=== PATIENT | male | born 1945 | race Caucasian/White ===

== ENCOUNTER → 2017-07-23 | Outpatient (CLI) | payer MEDICARE ==
--- NOTE | 2017-07-24 17:21 | RAD ---
EXAM DESCRIPTION: Chest,2 Views CLINICAL HISTORY: ACUTE BRONCHITIS COMPARISON: None TECHNIQUE: PA/lateral FINDINGS: The lungs are well expanded and clear. No infiltrates or effusions or masses are noted. The heart is normal in size and shape with no evidence of vascular congestion. The aortic arch and descending aorta is calcified and moderately tortuous The pau and mediastinum demonstrate normal contours. The bony spine and chest wall is normal for age in appearance. IMPRESSION: Normal chest, two views Electronically signed by: Ty De La Vega MD 07/24/2017 5:20 PM DIRECTOR GEOPHYSICAL LABORATORY
== END | disposition home or self-care (01) ==
LOC: LAB.O 09:37
PROVIDERS: ATTEND Nurse Practitioner Family
DX: E78.5 Hyperlipidemia, unspecified (principal); N40.0 Benign prostatic hyperplasia without lower urinary tract symptoms; J20.9 Acute bronchitis, unspecified; I10 Essential (primary) hypertension

== ENCOUNTER → 2018-11-26 | Outpatient (CLI) | payer MEDICARE, OTHER ==
--- NOTE | 2018-11-27 11:27 | MRI ---
EXAM DESCRIPTION: Lumbar Spine w/o Contrast CLINICAL HISTORY: 73 years Male, low back pain COMPARISON: None available. TECHNIQUE: Multiplanar multiecho imaging of the lumbar spine was performed without intravenous contrast administration. FINDINGS: Straightening of the normal lordotic curvature of the lumbar spine is noted. The vertebral body heights are well-maintained with no acute compression deformity. Multilevel intervertebral disc space narrowing is noted. The conus medullaris terminates at T12-L1 intervertebral disc space. The visualized spinal cord demonstrates no signal abnormality. L1-L2: Bilateral facet arthropathy. No central canal stenosis. There is mild left neural foraminal narrowing. L2-L3: Mild disc bulge and facet arthropathy with no central canal stenosis. There is moderate bilateral neural foraminal narrowing. L3-L4: Mild disc bulge and facet arthropathy with no central canal stenosis. There is moderate bilateral neural foraminal narrowing, worse on the right side. L4-L5: Diffuse disc bulge, ligament of flavum hypertrophy and facet arthropathy with resultant mild central canal stenosis, moderate to severe right and moderate left neural foraminal narrowing. L5-S1: Diffuse disc bulge and facet arthropathy with no central canal stenosis. There is moderate to severe right and moderate left neural foraminal narrowing. The visualized prevertebral and paravertebral soft tissues appear unremarkable. 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 Electronically signed by: Tamara Pavon MD 11/27/2018 11:24 AM CDT
== END ==
LOC: MRI 12:34
PROVIDERS: ATTEND Family Medicine
DX: M51.16 Intervertebral disc disorders with radiculopathy, lumbar region (principal)